=== PATIENT | female | born 1940 | race Asian ===

== ENCOUNTER 2022-11-25 08:11 | Observation (INO) | payer OTHER ==
[2022-11-25] MEDS ORDERED: LABETALOL HCL 5 MG/1 ML (100MG/20 ML VIAL) IVPUSH ONE (08:50)
[2022-11-25] MEDS ORDERED: SODIUM CHLORIDE 1,000 ML IV SCH (09:00)
[2022-11-25] MEDS ORDERED: LABETALOL HCL 20 MG/4 ML VIAL ONE (09:07)
[2022-11-25 09:47] LABS: BASO % 0.9 % (0-2.0); EOS % 1.8 % (0-4.5); HEMATOCRIT 42.6 % (32.4-45.2); LYMPH % 25.8 % (8-40); MCH 32.1 pg (25.7-33.7); MCHC 32.8 g/dl (32.0-36.0); MEAN CELL VOLUME 97.7 fl (80-96); MEAN PLT VOLUME 8.4 fl (7.5-11.1); MONO % 7.8 % (3.8-10.2); NEUT % 63.7 % (42.8-82.8); PLATELET COUNT 279 10^3/uL (134-434); RBC 4.35 M/mm3 (3.60-5.2); RDW 14.4 % (11.6-15.6); WHITE BLOOD COUNT 5.3 K/mm3 (4.0-10.0)
[2022-11-25 09:56] LABS: INR 0.97 (0.83-1.09); PROTHROMBIN TIME (PATIENT) 11.2 SEC (9.7-13.0)
[2022-11-25 09:59] LABS: ACTIVATED PTT 34.4 SECONDS (25.2-36.5)
[2022-11-25 10:15] LABS: POTASSIUM 3.9 mmol/L (3.5-5.1)
[2022-11-25 10:17] LABS: CALCIUM 9.2 mg/dL (8.5-10.1)
[2022-11-25 10:20] LABS: ALBUMIN 3.9 g/dl (3.4-5.0)
[2022-11-25 10:21] LABS: CREATININE 0.9 mg/dL (0.55-1.3)
[2022-11-25 10:22] LABS: BILIRUBIN,TOTAL 0.7 mg/dL (0.2-1)
[2022-11-25 10:23] LABS: TOT PROT 7.5 g/dl (6.4-8.2)
[2022-11-25] MEDS ORDERED: amLODIPine BESYLATE 2.5 MG TABLET (FP) PO SCH (11:00)
[2022-11-25 20:05] VITALS: BMI 23.8
[2022-11-25] MEDS: HEPARIN NA (PORCINE) 5,000 UNITS/ML 1ML VIAL SQ SCH (21:46)
[2022-11-25] MEDS ORDERED: ATORVASTATIN CA 10 MG TABLET (FP) PO SCH (22:00)
[2022-11-26 07:30] LABS: BASO % 1.5 % (0-2.0); EOS % 2.7 % (0-4.5); HEMOGLOBIN 13.2 GM/dL (10.7-15.3); LYMPH % 29.9 % (8-40); MCH 31.9 pg (25.7-33.7); MCHC 32.9 g/dl (32.0-36.0); MEAN CELL VOLUME 96.9 fl (80-96); MEAN PLT VOLUME 7.9 fl (7.5-11.1); MONO % 9.7 % (3.8-10.2); NEUT % 56.2 % (42.8-82.8); PLATELET COUNT 267 10^3/uL (134-434); RBC 4.12 M/mm3 (3.60-5.2); RDW 14.3 % (11.6-15.6); WHITE BLOOD COUNT 4.4 K/mm3 (4.0-10.0)
[2022-11-26 07:46] LABS: POTASSIUM 3.3 mmol/L (3.5-5.1)
[2022-11-26 07:49] LABS: CALCIUM 8.9 mg/dL (8.5-10.1)
[2022-11-26 07:50] LABS: BLOOD UREA NITROGEN 11.4 mg/dL (7-18)
[2022-11-26 07:53] LABS: CREATININE 0.8 mg/dL (0.55-1.3)
[2022-11-26] MEDS ORDERED: POTASSIUM CHLORIDE ORAL LIQUID 20 MEQ/15 ML PO ONE (08:13)
[2022-11-26] MEDS: ASPIRIN COATED 81 MG TABLET.EC PO SCH ×2 (09:20→10:01)
[2022-11-26] MEDS: HEPARIN NA (PORCINE) 5,000 UNITS/ML 1ML VIAL SQ SCH (09:20)
[2022-11-26] MEDS ORDERED: amLODIPine BESYLATE 5 MG TABLET (FP) PO SCH (10:00)
[2022-11-26 10:03] VITALS: PULSE 72; RESP 18
[2022-11-26 14:02] LABS: EPI CELLS 2 /uL (0-25.1); HYALINE CASTS 0 /uL (0-3.1); PH,URINE 6.5 (5.0-8.0); URINE APPEARANCE CLEAR; URINE BACTERIA 8 /uL (0-1359); URINE BILIRUBIN NEGATIVE (NEGATIVE); URINE COLOR YELLOW; URINE GLUCOSE (UA) NEGATIVE (NEGATIVE); URINE KETONE NEGATIVE (NEGATIVE); URINE LEUK ESTERASE NEGATIVE (NEGATIVE); URINE NITRITE NEGATIVE (NEGATIVE); URINE PROTEIN NEGATIVE (NEGATIVE); URINE RBC 13 /uL (0-23.9); URINE UROBILINOGEN 0.2 mg/dL (0.2-1.0); URINE WBC 2 /uL (0-25.8)
[2022-11-26 16:05] VITALS: BP 152/70; TEMP 98.1
== END 2022-11-26 16:39 | disposition home or self-care (01) ==
LOC: JER 08:11 → JERBED 10:20 → J4W 18:14
PROVIDERS: ADMIT Internal Medicine; ATTEND Internal Medicine
PROC: 3E023GC Introduction of Other Therapeutic Substance into Muscle, Percutaneous Approach (ICD-10-PCS; principal; 2022-11-25)
PROC: 3E033GC Introduction of Other Therapeutic Substance into Peripheral Vein, Percutaneous Approach (ICD-10-PCS; 2022-11-25)
PROC: 3E0337Z Introduction of Electrolytic and Water Balance Substance into Peripheral Vein, Percutaneous Approach (ICD-10-PCS; 2022-11-25)
DX: I16.0 Hypertensive urgency (principal); R79.9 Abnormal finding of blood chemistry, unspecified; E78.5 Hyperlipidemia, unspecified; R00.1 Bradycardia, unspecified; Z88.5 Allergy status to narcotic agent; Z88.0 Allergy status to penicillin
CPT/HCPCS: 36415; 70450-TC; 71045-TC-FY; 80048; 80053; 80061; 81003; 82550; 83036; 84439; 84443; 84484; 85025; 85610; 85730; 86850; 86900; 86901; 93005; 93010; 93306-TC; 93880-TC; 96361; 96372; 96374; 97116-GP; 97161-GP; 99285-25; G0378; J1644